=== PATIENT | male | born 2000 | race Asian ===

== ENCOUNTER 2020-01-19 19:02 | Emergency (ER) | payer BC ==
[~2020-01-19] VITALS: Ht 172.7 cm; Wt 95.3 kg
[2020-01-19 20:26] VITALS: BP 113/66
== END 2020-01-19 20:24 | disposition home or self-care (01) ==
LOC: ER 19:02
DX: U07.1 COVID-19 (principal)

== ENCOUNTER 2020-02-02 17:08 | Emergency (ER) | payer BC ==
[~2020-02-02] VITALS: Ht 172.7 cm; Wt 95.3 kg
[2020-02-02 19:06] VITALS: BP 125/68
== END 2020-02-02 19:07 | disposition home or self-care (01) ==
LOC: ER 17:08
DX: U07.1 COVID-19 (principal)